=== PATIENT | female | born 1985 | race African-American/Black ===

== ENCOUNTER 2017-04-07 15:22 | Emergency (ER) | payer OTHER, SELFPAY ==
[2017-04-07] MEDS ORDERED: HYDROcodone/Acetaminophen 5/325 mg Tablet ONE (16:00)
[2017-04-07] MEDS ORDERED: Lidocaine 4% Cream 5 GM TUBE w/ Tegaderm ONE (16:00)
== END 2017-04-07 16:51 | disposition home or self-care (01) ==
LOC: ERS 15:22
DX: L02.415 Cutaneous abscess of right lower limb (principal); J45.909 Unspecified asthma, uncomplicated
CPT/HCPCS: 10060

== ENCOUNTER 2017-05-21 10:47 | Emergency (ER) | payer SELFPAY ==
[2017-05-21] MEDS ORDERED: Ibuprofen 200 MG TAB ONE (12:22)
== END 2017-05-21 12:32 | disposition home or self-care (01) ==
LOC: ERS 10:47
DX: R05 Cough (principal); J45.909 Unspecified asthma, uncomplicated
CPT/HCPCS: 99283

== ENCOUNTER 2017-06-05 09:41 | Emergency (ER) | payer SELFPAY ==
[2017-06-05] MEDS ORDERED: Dexamethasone 10 MG/ML VIAL ONE (09:58)
[2017-06-05] MEDS ORDERED: Ibuprofen 800 MG TAB ONE (09:58)
[2017-06-05] MEDS ORDERED: Bicillin LA 1.2 MILLION UNITS/2 ML SYRINGE ONE (09:59)
== END 2017-06-05 10:35 | disposition home or self-care (01) ==
LOC: ERS 09:41
DX: Z03.89 Encounter for observation for other suspected diseases and conditions ruled out (principal); J45.909 Unspecified asthma, uncomplicated
CPT/HCPCS: 96372; J0561; J1100

== ENCOUNTER 2018-07-23 07:24 | Emergency (ER) | payer OTHER, SELFPAY ==
[2018-07-23] MEDS ORDERED: Dexamethasone 4 MG TAB ONE (09:29)
== END 2018-07-23 09:45 | disposition home or self-care (01) ==
LOC: ERS 07:24
DX: J06.9 Acute upper respiratory infection, unspecified (principal); J45.909 Unspecified asthma, uncomplicated
CPT/HCPCS: 99283; J8540